=== PATIENT | male | born 2000 | race Two or more races ===

== ENCOUNTER 2023-09-30 15:23 | Emergency (ER) | payer OTHER ==
[~2023-09-30] VITALS: Ht 177.8 cm; Wt 68.0 kg
[2023-09-30] MEDS ORDERED: ACETAMINOPHEN 500 MG GEL..CAP PO ONE (16:30)
[2023-09-30 17:44] LABS: HEMATOCRIT 46.5 % (39.0-48.0); HEMOGLOBIN 15.7 g/dL (13-16.00); MEAN CELL VOLUME 91.4 fL (80.0-100.00); MEAN CORPUSCULAR HEMOGLOBIN 30.8 pg (27.00-32.0); MEAN CORPUSCULAR HGB CONC 33.7 g/dl (32.0-36.0); RED BLOOD COUNT 5.09 M/uL (4.00-6.00); RED CELL DISTRIBUTION WIDTH 12.4 % (11.5-14.5)
[2023-09-30 18:14] LABS: PLATELET COUNT 105 K/uL (150-450)
== END 2023-09-30 18:51 | disposition home or self-care (01) ==
LOC: ER 15:23 → EDBD 16:28 → ER 16:28
PROVIDERS: Emergency Medicine
DX: A92.8 Other specified mosquito-borne viral fevers (principal); R53.81 Other malaise; Z20.822 Contact with and (suspected) exposure to COVID-19

== ENCOUNTER 2024-10-10 23:40 | Emergency (ER) | payer OTHER ==
[~2024-10-10] VITALS: Ht 185.4 cm; Wt 62.1 kg
[2024-10-11] MEDS ORDERED: KETOROLAC TROMETHAMINE 10 MG TABLET PO STA (01:00)
[2024-10-11] MEDS ORDERED: CEFTRIAXONE SODIUM 1,000 MG VIAL IM STA (01:00)
[2024-10-11] MEDS ORDERED: CEPHALEXIN500 MG PO (01:12)
[2024-10-11] MEDS ORDERED: KETO10TA2 PO (01:12)
[2024-10-11] MEDS ORDERED: CENTANY30 GM TOP (01:12)
[2024-10-11] MEDS ORDERED: KETOROLAC TROMETHAMINE 10 MG TABLET PO ONE (01:22)
[2024-10-11] MEDS ORDERED: CEFTRIAXONE SODIUM 1,000 MG VIAL ONE (01:22)
== END 2024-10-11 01:34 | disposition home or self-care (01) ==
LOC: ER 23:40
DX: L03.011 Cellulitis of right finger (principal)